=== PATIENT | male | born 1990 | race Caucasian/White ===

== ENCOUNTER 2019-04-14 16:03 | Emergency (ER) | payer OTHER ==
[~2019-04-14] VITALS: Ht 177.8 cm; Wt 99.8 kg
[2019-04-14 16:03] VITALS: BP_SYST 114
--- NOTE | 2019-04-14 16:08 | NUR ---
PT CAME TO ER AFTER WITNESSED SEIZURE IN HOTEL. PT BROUGHT TO ER BY AMBULANCE CONFUSED BUT BECOMING MORE ALERT.
--- NOTE | 2019-04-14 16:08 | NUR ---
Patient to ER bed 1 to gown for evaluation. Side rails up. Report given to Tacos SAAVEDRA.
--- NOTE | 2019-04-14 16:10 | NUR ---
FAROOQ Cruz at bedside examining patient.
--- NOTE | 2019-04-14 16:12 | NUR ---
# 18 gauge angiocath placed to LAC. Use of asceptic technique. Opsite placed over site. Blood return noted. Blood for lab drawn from site. Flushed with 10 cc of normal saline. No evidence of infiltration noted. Patient tolerated well.
[2019-04-14] MEDS ORDERED: LORazepam 2 MG/ML VIAL IVP ONE (16:15)
[2019-04-14] MEDS ORDERED: levETIRAcetam 1,000 MG IV BAG 100 ML IV ONE (16:15)
[2019-04-14] MEDS ORDERED: ONDANSETRON HCL 4 MG/2 ML VIAL IVP ONE (16:15)
[2019-04-14] MEDS ORDERED: NS 1000 ML IV.SOLN IV ONE (16:15)
--- NOTE | 2019-04-14 16:30 | NUR ---
PT WAS ABLE TO GIVE 'S PHONE NUMBER TO NURSE AND ASKED THAT SHE BE CALLED.
[2019-04-14 16:48] LABS: BASOPHILS # (AUTO) 0.1 K/uL (0.0-0.2); BASOPHILS % (AUTO) 0.5 % (0.0-2.0); EOSINOPHILS % (AUTO) 0.1 % (0.0-4.0); LYMPHOCYTES # (AUTO) 1.6 K/uL (1.0-5.5); LYMPHOCYTES % (AUTO) 16.6 % (20.5-51.5); MEAN CORPUSCULAR HEMOGLOBIN 33 pg (27-31); MEAN CORPUSCULAR HGB CONC 34 % (32-36); MEAN CORPUSCULAR VOLUME 98 fL (79.0-98.0); MONOCYTES # (AUTO) 0.7 K/uL (0.0-1.0); MONOCYTES % (AUTO) 7.5 % (1.7-9.3); NEUTROPHILS # (AUTO) 7.4 K/uL (1.8-7.7); NEUTROPHILS % (AUTO) 75.3 % (40.0-70.0); PLATELET COUNT (AUTO) 330 K/uL (130-430); RED BLOOD CELL COUNT(AUTO) 4.82 MIL/uL (4.2-6.2); RED CELL DISTRIBUTION WIDTH 14.4 % (9.0-15.0); WHITE BLOOD COUNT (AUTO) 9.8 K/uL (4.8-10.8)
[2019-04-14 16:59] LABS: ANION GAP 32 (5-15); CHLORIDE 92 mmol/L (98-107); CREATININE 1.25 mg/dL (0.55-1.30); GLUCOSE 131 mg/dL (70-99); SODIUM SERUM 135 mmol/L (136-145); UREA NITROGEN, BLOOD 9 mg/dL (8-21)
[2019-04-14 17:00] LABS: GFR AFRICAN AMERICAN 87 mL/min (>90)
[2019-04-14 17:12] LABS: ALANINE AMINOTRANSFERASE 88 U/L (12-78); ALBUMIN 4.6 g/dL (3.4-4.8); ALCOHOL, BLOOD 7 mg/dL (<10); ASPARTATE AMINOTRANSFERASE 105 U/L (10-37); TOTAL BILIRUBIN 1.3 mg/dL (0.0-1.0)
[2019-04-14 17:15] LABS: ACETAMINOPHEN < 1 ug/mL (1-30)
[2019-04-14] MEDS ORDERED: POTASSIUM CHLORIDE 20 MEQ TAB.PRT.SR PO ONE (17:15)
--- NOTE | 2019-04-14 17:30 | NUR ---
PT RESTING IN [facility] AT THIS TIME TOLERATING MEDICATION, AO4.
[2019-04-14] MEDS ORDERED: NACL 0.9% 1,000 ML IV ONE (18:00)
[2019-04-14] MEDS ORDERED: KETOROLAC TROMETHAMINE 30 MG VIAL IVP ONE (18:15)
[2019-04-14 18:19] LABS: BLOOD, URINE 2+ (NEGATIVE); CLARITY/URINE CLEAR (CLEAR); COLOR,URINE YELLOW (YELLOW); GLUCOSE,URINE NEGATIVE (NEGATIVE); KETONES,URINE 3+ (NEGATIVE); LEUKOCYTE ESTERASE ,URINE NEGATIVE (NEGATIVE); NITRITE, URINE NEGATIVE (NEGATIVE); PROTEIN URINE 2+ (NEGATIVE); UROBILINOGEN,URINE 0.2 (0.2-1.0)
[2019-04-14 18:28] LABS: BILIRUBIN,URINE NEGATIVE (NEGATIVE)
[2019-04-14 18:32] LABS: BACTERIA,URINE FEW /HPF (None Seen); MUCUS,URINE None Seen /LPF (None Seen); RBC,URINE 0-3 /HPF (0-3); WBC,URINE 0-3 /HPF (0-3)
[2019-04-14 18:35] LABS: BARBITURATE, URINE NEGATIVE (NEG <=200); BENZODIAZEPINE, URINE POSITIVE (NEG <=150); CANNABINOID, URINE POSITIVE (NEG <=50); COCAINE, URINE NEGATIVE (NEG <=150); METHAMPHETAMINES SCREEN,URINE NEGATIVE (NEG <=500); OPIATE, URINE NEGATIVE (NEG <=100); PHENCYCLIDINE SCREEN,URINE NEGATIVE (NEG <=25); UR TRICYCLIC ANTIDEPRESSANTS NEGATIVE (NEG <=300); URINE AMPHETAMINE NEGATIVE (NEG <=500); URINE METHADONE NEGATIVE (NEG <=200); URINE OXYCODONE SCREEN NEGATIVE (NEG <=100); URINE PROPOXYPHENE SCREEN NEGATIVE (NEG <=300)
--- NOTE | 2019-04-14 18:45 | NUR ---
PT AO4, AT BEDSIDE, NO DISTRESS NOTED, PLAN TO MOVE PT TO HESPERUS DESTINATION.
[2019-04-14] MEDS ORDERED: ESCI20TA PO (19:20)
[2019-04-14] MEDS ORDERED: NOR10 PO (19:20)
[2019-04-14 19:22] LABS: CKMB RELATIVE INDEX 0.7 (0.0-2.9); CREATINE KINASE MB 3.4 ng/mL (0-3.6)
--- NOTE | 2019-04-14 19:30 | NUR ---
Pt AAOx4, even and non-labored respiration, no seizure-like activity noted. VSS, NAD.
--- NOTE | 2019-04-14 20:30 | NUR ---
No needs verbalized, no seizure activity noted. VSS, NAD.
[2019-04-14 21:14] VITALS: BP_SYST 124
--- NOTE | 2019-04-14 21:16 | NUR ---
Patient to be transferred to [facility]. Is being transferred due to higher level of care. Receiving facility has accepting physician and available space. ER physician has signed transfer form. Patient or responsible republican has agreed to transfer and signed form. Patient belongings inventoried and will be sent with patient. Copy of nursing notes, lab reports, EKG, Physicians Orders and X-rays to be sent with patient. Report called to QUENTIN Ramos at receiving facility. Receiving physician is Dr. Scooby Benítez. Pt leaves via stretcher in stable condition in c/o [facility].
== END 2019-04-14 21:16 | disposition short-term general hospital (02) ==
LOC: SED 16:03
DX: S70.01XA Contusion of right hip, initial encounter (principal); F10.239 Alcohol dependence with withdrawal, unspecified; I10 Essential (primary) hypertension; E87.6 Hypokalemia; R41.0 Disorientation, unspecified; K70.9 Alcoholic liver disease, unspecified; E87.2 Acidosis; F19.10 Other psychoactive substance abuse, uncomplicated; F17.200 Nicotine dependence, unspecified, uncomplicated; F12.90 Cannabis use, unspecified, uncomplicated; Z88.0 Allergy status to penicillin; W18.39XA Other fall on same level, initial encounter; Y93.89 Activity, other specified; Y92.89 Other specified places as the place of occurrence of the external cause; Y99.8 Other external cause status; Y90.0 Blood alcohol level of less than 20 mg/100 ml
CPT/HCPCS: 36415; 70450; 71045; 73502; 80053; 80307; 81000; 82550; 82553; 83605; 84484; 85025; 85610; 85730; 87040; 87086; 93005; 96361; 96365; 99285; G0480; G0481; G0482; J1885; J1953; J2060; J2405; J7030